=== PATIENT | female | born 1990 | race Caucasian/White ===

== ENCOUNTER 2016-07-25 16:29 | Emergency (ER) | payer SELFPAY ==
[2016-07-25 19:40] VITALS: RESP 16; TEMP 97.7
--- NOTE | 2016-07-25 19:49 | EDPHY ---
H & P Stated Complaint: Breast pain Time Seen by Provider: 07/25/16 19:57 HPI/ROS: CHIEF COMPLAINT: Breast lump HISTORY OF PRESENT ILLNESS: This patient is a 26 year old female who presents to the Emergency Department complaining of a painful breast lump first presenting one year prior to arrival and worsening over time. She presents today because the pain has become severe enough to affect her daily life. She describes the lump as localized to her left breast with increasing pain when she lies down on her side or when she takes a deep breath. She has not taken anything to attempt to alleviate her pain. She denies any additional complaints : no shortness of breath, pleuritic chest pain, fever or chills, or recent infection. Her mother has history of benign breast tumor that was surgically removed. REVIEW OF SYSTEMS: A ten point review of systems was performed and is negative with the exception of the items mentioned in the HPI. Source: Patient Exam Limitations: No limitations - Personal History LMP (Females 10-55): 8-14 Days Ago - Medical/Surgical History Hx Asthma: No Hx Chronic Respiratory Disease: No Hx Diabetes: No Hx Cardiac Disease: No Hx Renal Disease: No Hx Cirrhosis: No Hx Alcoholism: No Hx HIV/AIDS: No Hx Splenectomy or Spleen Trauma: No Other PMH: Denies - Social History Smoking Status: Never smoked Additional Social History: Originally from [place]. She works as a teacher. No current PCP. - Physical Exam Exam: General Appearance: Alert. Vital signs reviewed: tachycardic at 101. Eyes: Pupils equal and round, no conjunctival injection, no discharge. Anicteric. ENT, Mouth: Mucous membranes are moist, no oropharyngeal erythema or edema. Neck: No lymphadenopathy, supple, no thyromegaly. Lymph nodes: No supraclavicular lymph nodes. No left axillary nodes. Breast: Fibrocystic breasts. No palpable mass. Respiratory: Lungs are clear to auscultation; no wheezes, rales, or rhonchi. Cardiovascular: Regular rate and rhythm; no murmur, rub, or gallop. Gastrointestinal: Abdomen is soft and nontender, no masses or organomegaly, bowel sounds normal. Skin: Warm and dry, no rashes on exposed skin, normal color. Back: Nontender to palpation over the thoracolumbar spine. No CVAT. Extremities: No lower extremity edema, no calf tenderness or swelling. Neurological: Alert and oriented. Moving all four extremities easily and equally. Psychiatric: Normal affect. Constitutional: Initial Vital Signs Temperature (C) 36.5 C 07/25/16 19:38 Heart Rate 101 H 07/25/16 19:38 Respiratory Rate 16 07/25/16 19:38 Blood Pressure 119/72 07/25/16 19:38 O2 Sat (%) 100 07/25/16 19:38 O2 Delivery Mode Room Air Allergies/Adverse Reactions: No Known Allergies Allergy (Unverified 07/25/16 19:40) Home Medications: Medication Instructions Recorded NK [No Known Home Meds] 07/25/16 Medical Decision Making ED Course/Re-evaluation: This normally healthy 26-year-old female presents worried about a mass in her left breast with worsening pain over the past year. Denies dyspnea or recent infection. On exam, she has fibrocystic breasts but no palpable mass. No supraclavicular lymph nodes or left axillary nodes. She is tachycardic at 101. Will proceed with labs, including D-dimer, and chest x-ray. Labs obtained and are unremarkable. D-dimer is negative. Chest x-ray reviewed by me is normal. I discussed lab and imaging results with the patient, who is relieved. I recommended to her that she follow-up with [facility] for further evaluation if her pain persists; she is agreeable to this. She will be discharged home in good condition with customary return precautions. Differential Diagnosis: I considered a differential diagnosis that includes but is not limited to malignant breast mass, fibrocystic breasts, adenopathy, and abscess. - Data Points Laboratory Results: Laboratory Results 07/25/16 20:20 07/25/16 20:20 Departure - Departure Disposition: Home, Routine, Self-Care Clinical Impression: Breast pain Condition: Good Instructions: Fibrocystic Breast Changes (ED) Additional Instructions: 1. Follow-up with a primary care provider for further evaluation if your symptoms do not improve over the next 5-7 days. We have referred you to our on- call primary care provider, Dr. Cerna. If you have trouble getting in to see him or if you do not have insurance, please follow-up with [facility]. You will have to call to register with [facility] in order to schedule an appointment. 2. Return to the Emergency Department with chest pain, difficulty breathing, high fever, or for other serious concerns. Referrals: [facility],. [Clinic] - As per Instructions Jaxon Cerna MD [[facility] Primary Care Provider] - As per Instructions Report Scribed for: Fabiola Brown Report Scribed by: Laura Mendez Date of Report: 07/25/16 Time of Report: 19:49 Physician Review and Approval Statement: 07/25/16 19:48 Portions of this note were transcribed by the medical physics professor. I, Dr. Fabiola Brown, personally performed the history, physical exam, and medical decision- making; and confirmed the accuracy of the information in the transcribed note.
[2016-07-25 20:26] LABS: % IMMATURE GRANULYOCYTES 0.5 % (0.0-1.1); ABSOLUTE IMMATURE GRANULOCYTES 0.05 10^3/uL (0.00-0.10); ADD DIFF? NO; ADD MORPH? NO; ADD SCAN? NO; ATYPICAL LYMPHOCYTE FLAG 20 (0-99); FRAGMENT RBC FLAG 0 (0-99); HEMATOCRIT 42.7 % (38.0-47.0); HEMOGLOBIN 14.4 g/dL (12.6-16.3); LEFT SHIFT FLG 0 (0-99); LIPEMIA HEMOLYSIS FLAG 80 (0-99); MEAN CELL HEMOGLOBIN 30.7 pg (27.9-34.1); MEAN CELL HEMOGLOBIN CONCENTR. 33.7 g/dL (32.4-36.7); PLATELET CLUMPS FLAG 0 (0-99); PLATELET COUNT 284 10^3/uL (150-400); RED BLOOD CELL COUNT 4.69 10^6/uL (4.18-5.33); RED CELL DISTRIBUTION WIDTH 13.8 % (11.5-15.2)
[2016-07-25 20:34] LABS: ANION GAP 12 mEq/L (8-16); CALCIUM 9.6 mg/dL (8.5-10.4); CARBON DIOXIDE 24 mEq/l (22-31); CHLORIDE 105 mEq/L (97-110); CREATININE 0.5 mg/dL (0.6-1.0); GLOMERULAR FILTRATION RATE > 60; GLUCOSE 82 mg/dL (70-100); POTASSIUM 4.2 mEq/L (3.5-5.2); SODIUM 141 mEq/L (134-144)
[2016-07-25 21:14] VITALS: BP 108/73; PULSE 99; O2SAT 97
== END 2016-07-25 21:20 | disposition home or self-care (01) ==
DX: N64.4 Mastodynia (principal)